=== PATIENT | female | born 1980 | race Two or more races ===

== ENCOUNTER 2020-05-09 18:09 | Inpatient (IN) | payer MEDICAID ==
[~2020-05-09] VITALS: Ht 154.9 cm; Wt 73.5 kg
[2020-05-10] MEDS ORDERED: LORazepam 2 MG TABLET PO PRN (00:30)
[2020-05-10 01:27] VITALS: BP 120/87
[2020-05-10] MEDS ORDERED: MAG HYDROX/AL HYDROX/SIMETH ES 30 ML SUSPENSION UDCUP PO PRN (08:00)
[2020-05-10] MEDS ORDERED: BENZOCAINE/MENTHOL LOZENGE PO PRN (08:00)
[2020-05-10] MEDS ORDERED: ALBUTEROL SULFATE HFA 90 MCG/PUFF 8 GM INHALER IH PRN (08:00)
[2020-05-10] MEDS ORDERED: OMEPRAZOLE 20 MG CAPSULE PO PRN (08:00)
[2020-05-10] MEDS ORDERED: PETROLATUM,WHITE 28 GM JELLY TP PRN (08:00)
[2020-05-10] MEDS ORDERED: ACETAMINOPHEN 325 MG TABLET PO PRN (08:00)
[2020-05-10] MEDS ORDERED: LOPERAMIDE HCL 2 MG CAPSULE PO PRN (08:00)
[2020-05-10] MEDS ORDERED: BACITRACIN 28 GM OINTMENT TP PRN (08:00)
[2020-05-10] MEDS ORDERED: IBUPROFEN 600 MG TABLET PO PRN (08:00)
[2020-05-10] MEDS ORDERED: DOCUSATE SODIUM 100 MG CAPSULE PO PRN (08:00)
[2020-05-10] MEDS ORDERED: ONDANSETRON HCL 4 MG TABLET PO PRN (08:00)
[2020-05-10] MEDS ORDERED: MAGNESIUM HYDROXIDE SUSPENSION 30 ML UDCUP PO PRN (08:00)
[2020-05-10] MEDS ORDERED: CloNIDine HCL 0.1 MG TABLET PO PRN (08:00)
[2020-05-10] MEDS: TOPIRAMATE 100 MG TABLET PO SCH ×2 (08:35→17:17)
[2020-05-10] MEDS ORDERED: ESCITALOPRAM OXALATE 20 MG TABLET PO SCH (09:00)
[2020-05-10 09:30] VITALS: BP 123/75
[2020-05-10] MEDS ORDERED: LURASIDONE HCL 80 MG TABLET PO SCH (12:00)
[2020-05-10] MEDS ORDERED: MIRTAZAPINE 15 MG TABLET PO SCH (21:00)
[2020-05-11] VITALS: BP 136/66
[2020-05-11 08:08] LABS: BASOPHILS % (AUTO) 0.7 % (0.0-2.0); EOSINOPHILS % (AUTO) 2.9 % (1.0-6.0); HEMATOCRIT 36.4 % (36-46); HEMOGLOBIN 12.1 g/dL (12.0-16.0); LYMPHOCYTES # (AUTO) 1.5 K/uL (1.0-4.8); LYMPHOCYTES % (AUTO) 30.1 % (22.0-44.0); MEAN CORPUSCULAR HEMOGLOBIN 28.5 pg (26.0-34.0); MEAN CORPUSCULAR HGB CONC 33.3 G/dL (31.0-37.0); MEAN CORPUSCULAR VOLUME 86 fL (80-100); MONOCYTES # (AUTO) 0.3 K/uL (0.1-1.0); MONOCYTES % (AUTO) 6.8 % (2.0-9.0); NEUTROPHILS % (AUTO) 59.5 % (40.0-70.0); PLATELET COUNT (AUTO) 301 K/uL (150-450); RED BLOOD CELL COUNT(AUTO) 4.26 MIL/uL (4.00-5.20); RED CELL DISTRIBUTION WIDTH 15.2 % (11.5-14.5)
[2020-05-11 08:14] LABS: ALANINE AMINOTRANSFERASE 20 U/L (12-78); ALBUMIN 3.8 g/dL (3.4-5.0); ALKALINE PHOSPHATASE 51 U/L (46-116); ANION GAP 11 mmol/L (8-16); ASPARTATE AMINOTRANSFERASE 11 U/L (15-37); BILIRUBIN,TOTAL 0.3 mg/dL (0.1-1.0); CALCIUM, TOTAL 9.5 mg/dL (8.8-10.5); CARBON DIOXIDE 23 mmol/L (22-29); CHLORIDE 104 mmol/L (98-107); CHOL/HDL RATIO 2.7 (3.9-5.7); CHOLESTEROL 150 mg/dL (131-200); CREATININE 0.84 mg/dL (0.60-1.30); FREE T4 (FREE THYROXINE) 1.04 ng/dL (0.76-1.46); GLOMERULAR FILTR. RATE CALC > 60 mL/min (>60); GLUCOSE,RANDOM 88 mg/dL (70-110); HDL CHOLESTEROL 56 mg/dL (40-60); LDL CHOL (CALC.) 80 mg/dL (0-130); POTASSIUM 3.4 mmol/L (3.5-5.1); SODIUM SERUM 138 mmol/L (136-145); THYROID STIMULATING HORMONE 0.21 uIU/mL (0.36-3.74); TOTAL PROTEIN, SERUM 7.3 g/dL (6.4-8.2); TRIGLYCERIDES 69 mg/dL (15-150); UREA NITROGEN, BLOOD 8 mg/dL (7-18)
[2020-05-11 08:51] VITALS: BP 114/75
[2020-05-11] MEDS ORDERED: LURASIDONE HCL 80 MG TABLET PO SCH (09:00)
[2020-05-11] MEDS: TOPIRAMATE 100 MG TABLET PO SCH ×2 (09:07→16:22)
[2020-05-11] MEDS: ESCITALOPRAM OXALATE 10 MG TABLET PO SCH (09:09)
[2020-05-11 16:44] VITALS: BP 119/78
[2020-05-11] MEDS: LURASIDONE HCL 80 MG TABLET PO SCH (20:13)
[2020-05-12] VITALS: BP 122/81
[2020-05-12 08:06] LABS: ANION GAP 10 mmol/L (8-16); CALCIUM, TOTAL 9.4 mg/dL (8.8-10.5); CARBON DIOXIDE 24 mmol/L (22-29); CHLORIDE 106 mmol/L (98-107); CREATININE 0.76 mg/dL (0.60-1.30); GLOMERULAR FILTR. RATE CALC > 60 mL/min (>60); GLUCOSE,RANDOM 91 mg/dL (70-110); POTASSIUM 3.6 mmol/L (3.5-5.1); SODIUM SERUM 140 mmol/L (136-145); UREA NITROGEN, BLOOD 12 mg/dL (7-18)
[2020-05-12 08:15] VITALS: BP 127/76
[2020-05-12] MEDS: TOPIRAMATE 100 MG TABLET PO SCH ×2 (08:28→16:32)
[2020-05-12] MEDS: ESCITALOPRAM OXALATE 10 MG TABLET PO SCH (08:28)
[2020-05-12 16:03] VITALS: BP 124/68
[2020-05-12] MEDS: LURASIDONE HCL 80 MG TABLET PO SCH ×2 (20:50→20:57)
[2020-05-13 00:14] VITALS: BP 128/83
[2020-05-13 08:11] VITALS: BP 105/62
[2020-05-13] MEDS: TOPIRAMATE 100 MG TABLET PO SCH ×2 (08:29→16:23)
[2020-05-13] MEDS: ESCITALOPRAM OXALATE 10 MG TABLET PO SCH (08:29)
[2020-05-13 16:05] VITALS: BP 112/69
[2020-05-13] MEDS: HALOPERIDOL 5 MG TABLET PO PRN (19:29)
[2020-05-13] MEDS: LURASIDONE HCL 80 MG TABLET PO SCH (20:13)
[2020-05-13] MEDS: ZOLPIDEM TARTRATE 10 MG TABLET PO PRN (20:31)
[2020-05-14 00:50] VITALS: BP 109/64
[2020-05-14] MEDS: ESCITALOPRAM OXALATE 10 MG TABLET PO SCH (08:33)
[2020-05-14] MEDS: TOPIRAMATE 100 MG TABLET PO SCH ×2 (08:33→16:17)
[2020-05-14 09:23] VITALS: BP 122/72
[2020-05-14] MEDS: LURASIDONE HCL 80 MG TABLET PO SCH (20:11)
[2020-05-14] MEDS: HALOPERIDOL 5 MG TABLET PO PRN (20:27)
[2020-05-14] MEDS: ZOLPIDEM TARTRATE 10 MG TABLET PO PRN (20:27)
[2020-05-15 01:39] VITALS: BP 121/71
[2020-05-15] MEDS: TOPIRAMATE 100 MG TABLET PO SCH ×2 (08:14→16:12)
[2020-05-15] MEDS: ESCITALOPRAM OXALATE 10 MG TABLET PO SCH (08:14)
[2020-05-15 09:07] LABS: BILIRUBIN,URINE NEGATIVE (NEGATIVE); GLUCOSE, URINE (UA) NEGATIVE (NEGATIVE); KETONES,URINE NEGATIVE (NEGATIVE); LEUKOCYTE ESTERASE ,URINE NEGATIVE (NEGATIVE); NITRATE,URINE NEGATIVE (NEGATIVE); OCCULT BLOOD,URINE LARGE (NEGATIVE); PH,URINE 6.5 (5.0-8.0); PROTEIN,URINE NEGATIVE (NEGATIVE); UROBILINOGEN,URINE 0.2 mg/dL (<=1.0)
[2020-05-15 09:09] LABS: APPEARANCE,URINE SLIGHTLY CLOUDY (CLEAR)
[2020-05-15 09:14] LABS: AMPHET/METH SCREEN,URINE NEGATIVE (NEGATIVE); BARBITURATE SCREEN, URINE NEGATIVE (NEGATIVE); BENZODIAZEPINES SCREEN,URINE NEGATIVE (NEGATIVE); CANNABINOID SCREEN,URINE NEGATIVE (NEGATIVE); COCAINE SCREEN,URINE NEGATIVE (NEGATIVE); METHADONE SCREEN, URINE NEGATIVE (NEGATIVE); OPIATE SCREEN,URINE NEGATIVE (NEGATIVE)
[2020-05-15 09:15] LABS: PHENCYCLIDINE SCREEN,URINE NEGATIVE (NEGATIVE)
[2020-05-15 09:28] LABS: BACTERIA,URINE Moderate /HPF (None Seen); CALCIUM OXALATE CRYSTALS,UR Few /LPF (None Seen); SQUAMOUS EPITHELIAL CELL,UR Many /LPF (None Seen); WBC,URINE 0-2 /HPF (0-5)
[2020-05-15] MEDS: HALOPERIDOL 5 MG TABLET PO PRN (16:12)
[2020-05-15] MEDS: LURASIDONE HCL 80 MG TABLET PO SCH (21:28)
[2020-05-16 00:45] VITALS: BP 116/69
[2020-05-16] MEDS: TOPIRAMATE 100 MG TABLET PO SCH ×2 (08:10→16:23)
[2020-05-16] MEDS: ESCITALOPRAM OXALATE 10 MG TABLET PO SCH (08:10)
[2020-05-16] MEDS: LURASIDONE HCL 80 MG TABLET PO SCH (20:09)
[2020-05-16] MEDS: ZOLPIDEM TARTRATE 10 MG TABLET PO PRN (20:10)
[2020-05-17] MEDS: TOPIRAMATE 100 MG TABLET PO SCH ×2 (09:00→16:35)
[2020-05-17] MEDS: ESCITALOPRAM OXALATE 10 MG TABLET PO SCH (09:00)
[2020-05-17 16:25] VITALS: BP 113/77
[2020-05-17] MEDS: LURASIDONE HCL 80 MG TABLET PO SCH (16:35)
[2020-05-17] MEDS: BusPIRone HCL 15 MG TABLET PO SCH (16:35)
[2020-05-17] MEDS ORDERED: MIRTAZAPINE 15 MG TABLET PO SCH (21:00)
[2020-05-18 06:32] VITALS: BP 128/75
[2020-05-18] MEDS: TOPIRAMATE 100 MG TABLET PO SCH ×2 (08:25→16:17)
[2020-05-18] MEDS: BusPIRone HCL 15 MG TABLET PO SCH ×2 (08:25→16:17)
[2020-05-18] MEDS ORDERED: MIRT-89 PO (13:36)
[2020-05-18] MEDS ORDERED: TOPI100T37 PO (13:36)
[2020-05-18] MEDS ORDERED: LURA80TA2 PO (13:36)
[2020-05-18] MEDS ORDERED: BUSP15 PO (13:36)
[2020-05-18 16:15] VITALS: BP 140/80
[2020-05-18] MEDS: LURASIDONE HCL 80 MG TABLET PO SCH (16:17)
== END 2020-05-18 16:20 | disposition home or self-care (01) | DRG 750 ==
LOC: B2S 05-10 01:07
PROVIDERS: ADMIT Psychiatry & Neurology Psychiatry; ATTEND Psychiatry & Neurology Psychiatry
DX: F25.1 Schizoaffective disorder, depressive type (principal); F32.9 Major depressive disorder, single episode, unspecified; F19.10 Other psychoactive substance abuse, uncomplicated; K59.00 Constipation, unspecified; G47.00 Insomnia, unspecified; F41.9 Anxiety disorder, unspecified; Z59.0 Homelessness; Z79.899 Other long term (current) drug therapy; Z72.0 Tobacco use
CPT/HCPCS: 80307; 83036; 84439; 84443; 86592; 87086

== ENCOUNTER 2023-01-27 17:47 | Emergency (ER) | payer MEDICAID, OTHER ==
[~2023-01-27 17:47] MED LIST: BUSP15 PO; LURA80TA2 PO; MIRT-89 PO; TOPI100T37 PO
== END 2023-01-27 19:02 | disposition left against medical advice (07) ==
LOC: EMS 17:50
DX: Z53.21 Procedure and treatment not carried out due to patient leaving prior to being seen by health care provider (principal)

== ENCOUNTER 2023-01-29 10:14 | Inpatient (IN) | payer MEDICAID, OTHER ==
[~2023-01-29] VITALS: Ht 162.6 cm; Wt 98.0 kg
[2023-01-29 10:44] LABS: COVID AG,FIA SOURCE NASOPHARYNGEAL
[2023-01-29] MEDS ORDERED: HALOPERIDOL LACTATE 5 MG/ML VIAL IM ONE (10:45)
[2023-01-29] MEDS ORDERED: LORazepam 2 MG/ML VIAL IM ONE (10:45)
[2023-01-29] MEDS ORDERED: DiphenhydrAMINE HCL 50 MG/ML VIAL IM ONE (10:45)
[2023-01-29 11:55] LABS: BASOPHILS % (AUTO) 0.7 % (0.0-2.0); EOSINOPHILS % (AUTO) 1.9 % (1.0-6.0); HEMATOCRIT 31.5 % (36-46); LYMPHOCYTES % (AUTO) 22.8 % (22.0-44.0); MEAN CORPUSCULAR HGB CONC 31.8 G/dL (31.0-37.0); MEAN CORPUSCULAR VOLUME 79 fL (80-100); MONOCYTES # (AUTO) 0.4 K/uL (0.1-1.0); MONOCYTES % (AUTO) 9.3 % (2.0-9.0); NEUTROPHILS # (AUTO) 2.9 K/uL (1.8-7.7); NEUTROPHILS % (AUTO) 65.3 % (40.0-70.0); PLATELET COUNT (AUTO) 348 K/uL (150-450); RED BLOOD CELL COUNT(AUTO) 4.01 MIL/uL (4.00-5.20); RED CELL DISTRIBUTION WIDTH 17.4 % (11.5-14.5)
[2023-01-29] MEDS ORDERED: HALOPERIDOL 5 MG TABLET PO PRN (12:00)
[2023-01-29] MEDS ORDERED: TRAZ-257 PO (12:05)
[2023-01-29] MEDS ORDERED: LUMA42CA PO (12:05)
[2023-01-29] MEDS ORDERED: ESCI10 PO (12:05)
[2023-01-29] MEDS ORDERED: HYDR-4808 PO (12:05)
[2023-01-29] MEDS ORDERED: NICO-800 TD (12:05)
[2023-01-29 12:16] LABS: ANION GAP 6 mmol/L (8-16); CALCIUM, TOTAL 8.8 mg/dL (8.8-10.5); CARBON DIOXIDE 25 mmol/L (22-29); CHLORIDE 107 mmol/L (98-107); CREATININE 0.67 mg/dL (0.60-1.30); GLOMERULAR FILTR. RATE CALC > 60 mL/min (>60); GLUCOSE,RANDOM 90 mg/dL (70-110); POTASSIUM 3.6 mmol/L (3.5-5.1); SODIUM SERUM 138 mmol/L (136-145)
[2023-01-29 12:22] LABS: ALANINE AMINOTRANSFERASE 24 U/L (12-78); ALBUMIN 3.7 g/dL (3.4-5.0); ALKALINE PHOSPHATASE 56 U/L (46-116); ASPARTATE AMINOTRANSFERASE 32 U/L (15-37); BILIRUBIN,TOTAL 0.4 mg/dL (0.1-1.0); TOTAL PROTEIN, SERUM 7.4 g/dL (6.4-8.2)
[2023-01-29] MEDS: LORazepam 2 MG TABLET PO PRN (22:56)
[2023-01-31 08:20] VITALS: BP 113/69
[2023-01-31 09:00] VITALS: BP 113/69
[2023-01-31] MEDS ORDERED: ONDANSETRON HCL 4 MG TABLET PO PRN (09:00)
[2023-01-31] MEDS ORDERED: ACETAMINOPHEN 325 MG TABLET PO PRN (09:00)
[2023-01-31] MEDS ORDERED: IBUPROFEN 600 MG TABLET PO PRN (09:00)
[2023-01-31] MEDS ORDERED: MAGNESIUM HYDROXIDE SUSPENSION 30 ML UDCUP PO PRN (09:00)
[2023-01-31] MEDS ORDERED: DOCUSATE SODIUM 100 MG CAPSULE PO PRN (09:00)
[2023-01-31] MEDS ORDERED: PETROLATUM,WHITE 28 GM JELLY TP PRN (09:00)
[2023-01-31] MEDS ORDERED: CloNIDine HCL 0.1 MG TABLET PO PRN (09:00)
[2023-01-31] MEDS ORDERED: ALBUTEROL SULFATE HFA 90 MCG/PUFF 8 GM INHALER IH PRN (09:00)
[2023-01-31] MEDS ORDERED: LOPERAMIDE HCL 2 MG CAPSULE PO PRN (09:00)
[2023-01-31] MEDS ORDERED: OMEPRAZOLE 20 MG CAPSULE PO PRN (09:00)
[2023-01-31] MEDS ORDERED: BACITRACIN 28 GM OINTMENT TP PRN (09:00)
[2023-01-31] MEDS ORDERED: MAG HYDROX/AL HYDROX/SIMETH ES 30 ML SUSPENSION UDCUP PO PRN (09:00)
[2023-01-31] MEDS: LORazepam 2 MG TABLET PO PRN ×2 (09:16→22:06)
[2023-01-31 16:09] VITALS: BP 119/73
[2023-01-31] MEDS: NICOTINE 14 MG/24 HOUR PATCH TD PRN (18:58)
[2023-01-31 20:08] VITALS: BP 125/70
[2023-01-31] MEDS: ZOLPIDEM TARTRATE 10 MG TABLET PO PRN (22:05)
[2023-01-31 22:51] VITALS: BP 138/63
[2023-02-01 08:28] LABS: APPEARANCE,URINE HAZY (CLEAR); BILIRUBIN,URINE NEGATIVE (NEGATIVE); GLUCOSE, URINE (UA) NEGATIVE (NEGATIVE); KETONES,URINE NEGATIVE (NEGATIVE); LEUKOCYTE ESTERASE ,URINE NEGATIVE (NEGATIVE); NITRATE,URINE NEGATIVE (NEGATIVE); OCCULT BLOOD,URINE NEGATIVE (NEGATIVE); PROTEIN,URINE NEGATIVE (NEGATIVE); SPECIFIC GRAVITIY, URINE 1.022 (1.003-1.030); UROBILINOGEN,URINE <=1.0 mg/dL (<=1.0)
[2023-02-01 08:37] LABS: AMPHET/METH SCREEN,URINE NEGATIVE (NEGATIVE); BARBITURATE SCREEN, URINE NEGATIVE (NEGATIVE); BENZODIAZEPINES SCREEN,URINE NEGATIVE (NEGATIVE); CANNABINOID SCREEN,URINE POSITIVE (NEGATIVE); COCAINE SCREEN,URINE NEGATIVE (NEGATIVE); METHADONE SCREEN, URINE NEGATIVE (NEGATIVE); OPIATE SCREEN,URINE NEGATIVE (NEGATIVE); PHENCYCLIDINE SCREEN,URINE NEGATIVE (NEGATIVE)
[2023-02-01] MEDS: LORazepam 2 MG TABLET PO PRN ×2 (08:38→18:32)
[2023-02-01] MEDS: MULTIVITAMINS WITH MINERALS, THERAPEUTIC TABLET PO SCH (08:38)
[2023-02-01 10:00] VITALS: BP 102/66
[2023-02-01] MEDS: NICOTINE 14 MG/24 HOUR PATCH TD PRN (14:43)
[2023-02-01 16:20] VITALS: BP 134/86
[2023-02-01] MEDS: DIVALPROEX SODIUM 500 MG DR TABLET PO SCH (20:18)
[2023-02-01] MEDS: LITHIUM CARBONATE 300 MG CAPSULE PO SCH (20:18)
[2023-02-01] MEDS: RisperiDONE 0.5 MG TABLET PO SCH (20:18)
[2023-02-01] MEDS: ZOLPIDEM TARTRATE 10 MG TABLET PO PRN (21:01)
[2023-02-02 08:35] VITALS: BP 130/81
[2023-02-02] MEDS: RisperiDONE 0.5 MG TABLET PO SCH ×2 (08:42→20:43)
[2023-02-02] MEDS: MULTIVITAMINS WITH MINERALS, THERAPEUTIC TABLET PO SCH (08:42)
[2023-02-02] MEDS: DIVALPROEX SODIUM 500 MG DR TABLET PO SCH ×2 (08:42→20:43)
[2023-02-02] MEDS: LITHIUM CARBONATE 300 MG CAPSULE PO SCH ×2 (08:42→20:43)
[2023-02-02 09:01] VITALS: BP 132/85
[2023-02-02] MEDS: LORazepam 2 MG TABLET PO PRN (09:51)
[2023-02-02 20:23] VITALS: BP 111/72
[2023-02-03 07:59] LABS: LITHIUM 0.37 mmol/L (0.60-1.20)
[2023-02-03] MEDS: LITHIUM CARBONATE 300 MG CAPSULE PO SCH (08:25)
[2023-02-03] MEDS: DIVALPROEX SODIUM 500 MG DR TABLET PO SCH (08:25)
[2023-02-03] MEDS: MULTIVITAMINS WITH MINERALS, THERAPEUTIC TABLET PO SCH (08:25)
[2023-02-03] MEDS: RisperiDONE 0.5 MG TABLET PO SCH (08:28)
[2023-02-03 08:32] VITALS: BP 100/65
[2023-02-03] MEDS ORDERED: LITH300C3 PO (13:26)
[2023-02-03] MEDS ORDERED: DIVA-112 PO (13:26)
[2023-02-03] MEDS ORDERED: RISP0.5T39 PO (13:26)
== END 2023-02-03 16:08 | disposition home or self-care (01) | DRG 750 ==
LOC: EMS 10:16 → B3A 01-30 10:51
PROVIDERS: ADMIT Psychiatry & Neurology Psychiatry; ATTEND Psychiatry & Neurology Psychiatry
DX: F25.9 Schizoaffective disorder, unspecified (principal); R45.851 Suicidal ideations; F32.A Depression, unspecified; D50.9 Iron deficiency anemia, unspecified; F17.210 Nicotine dependence, cigarettes, uncomplicated; F41.9 Anxiety disorder, unspecified; G47.00 Insomnia, unspecified; K59.00 Constipation, unspecified; Z20.822 Contact with and (suspected) exposure to COVID-19; Z79.899 Other long term (current) drug therapy
CPT/HCPCS: 80053; 80164; 80178; 80307; 81003; 84703; 85025; 99285; G0480; J1200; J1630; J2060

== ENCOUNTER 2023-04-15 09:53 | Emergency (ER) | payer MEDICAID, OTHER ==
[~2023-04-15] VITALS: Ht 162.6 cm; Wt 94.1 kg
[~2023-04-15 09:53] MED LIST changes: -BUSP15 PO; +DIVA-112 PO; +LITH300C3 PO; -LURA80TA2 PO; -MIRT-89 PO; +RISP0.5T39 PO; -TOPI100T37 PO
[2023-04-15 09:59] VITALS: TEMP 98.5
[2023-04-15] MEDS ORDERED: LUMA42CA PO (09:59)
[2023-04-15] MEDS ORDERED: ESCI-8 PO (09:59)
[2023-04-15] MEDS ORDERED: RISP1TAB48 PO (09:59)
[2023-04-15] MEDS ORDERED: BUSP30TA2 PO (09:59)
[2023-04-15] MEDS ORDERED: HYDR-4808 PO (09:59)
[2023-04-15 13:16] VITALS: BP 116/74; PULSE 80; RESP 16
[2023-04-15] MEDS ORDERED: TRAZ-257 PO (13:18)
[2023-04-15] MEDS ORDERED: DOXY-354 PO (13:38)
[2023-04-15] MEDS ORDERED: DOXYCYCLINE HYCLATE 100 MG TABLET PO ONE (13:45)
== END 2023-04-15 13:57 | disposition home or self-care (01) ==
LOC: EMS 09:57
DX: S10.96XA Insect bite of unspecified part of neck, initial encounter (principal); L73.9 Follicular disorder, unspecified; F20.9 Schizophrenia, unspecified; F31.9 Bipolar disorder, unspecified; F12.90 Cannabis use, unspecified, uncomplicated; W57.XXXA Bitten or stung by nonvenomous insect and other nonvenomous arthropods, initial encounter; Y93.89 Activity, other specified; Y92.89 Other specified places as the place of occurrence of the external cause; Y99.8 Other external cause status
CPT/HCPCS: 99283

== ENCOUNTER 2025-08-18 14:29 | Inpatient (IN) | payer MEDICAID ==
[~2025-08-18] VITALS: Ht 162.6 cm; Wt 65.9 kg
[~2025-08-18 14:29] MED LIST changes: +BUSP30TA2 PO; +DOXY-354 PO; +ESCI-8 PO; +HYDR-4808 PO; +LUMA42CA4 PO; -RISP0.5T39 PO; +RISP1TAB48 PO; +TRAZ-257 PO
[2025-08-18 15:12] LABS: COVID AG,FIA SOURCE NASAL SWAB
[2025-08-18 15:14] LABS: PLATELET COUNT (AUTO) 427 K/uL (150-450); RED BLOOD CELL COUNT(AUTO) 4.39 MIL/uL (4.00-5.20); RED CELL DISTRIBUTION WIDTH 16.3 % (11.5-14.5); WHITE BLOOD COUNT (AUTO) 5.4 K/uL (4.5-11.0)
[2025-08-18 15:21] LABS: CALCIUM, TOTAL 9.9 mg/dL (8.8-10.5); CREATININE 0.68 mg/dL (0.60-1.30); GLOMERULAR FILTR. RATE CALC > 60 mL/min (>60); GLUCOSE,RANDOM 88 mg/dL (70-110); SODIUM SERUM 140 mmol/L (136-145); UREA NITROGEN, BLOOD 14 mg/dL (7-18)
[2025-08-18 15:28] LABS: ALCOHOL, BLOOD (SERUM) < 3 mg/dL (0-10)
[2025-08-18 15:30] LABS: SARS-COV2 (COVID) ANTIGEN,FIA Negative (Negative)
[2025-08-18 15:32] LABS: HCG,QUANTITATIVE 1 mIU/mL (0-6)
[2025-08-18 16:21] LABS: APPEARANCE,URINE CLEAR (CLEAR); GLUCOSE, URINE (UA) NEGATIVE (NEGATIVE); LEUKOCYTE ESTERASE ,URINE SMALL (NEGATIVE); NITRATE,URINE NEGATIVE (NEGATIVE); OCCULT BLOOD,URINE MODERATE (NEGATIVE); PH,URINE DRUG SCREEN 5.5 (5.0-8.0); SPECIFIC GRAVITIY, URINE 1.039 (1.003-1.030)
[2025-08-18 16:28] LABS: ALCOHOL, URINE DRUG SCREEN NEGATIVE (NEGATIVE); AMPHET/METH SCREEN,URINE NEGATIVE (NEGATIVE); BARBITURATE SCREEN, URINE NEGATIVE (NEGATIVE); CANNABINOID SCREEN,URINE POSITIVE (NEGATIVE); COCAINE SCREEN,URINE NEGATIVE (NEGATIVE); METHADONE SCREEN, URINE NEGATIVE (NEGATIVE)
[2025-08-18 16:34] LABS: YEAST,URINE Moderate /HPF (None Seen)
[2025-08-18 20:07] VITALS: BP 138/99; PULSE 85; RESP 17; TEMP 97.7; O2SAT 100
[2025-08-18] MEDS ORDERED: ACETAMINOPHEN 325 MG TABLET PO PRN (20:45)
[2025-08-18] MEDS ORDERED: GuaiFENesin/D-METHORPHAN [SUGAR-FREE] 200-20MG/10 ML SYRUP UDCUP PO PRN (20:45)
[2025-08-18] MEDS ORDERED: ONDANSETRON 4 MG TABLET PO PRN (20:45)
[2025-08-18] MEDS ORDERED: LOPERAMIDE HCL 2 MG CAPSULE PO PRN (20:45)
[2025-08-18] MEDS ORDERED: PETROLATUM,WHITE 28 GM JELLY TP PRN (20:45)
[2025-08-18] MEDS ORDERED: MAGNESIUM HYDROXIDE SUSPENSION 30 ML UDCUP PO PRN (20:45)
[2025-08-18] MEDS ORDERED: ALBUTEROL SULFATE HFA 90 MCG/PUFF 8 GM INHALER IH PRN (20:45)
[2025-08-18] MEDS ORDERED: IBUPROFEN 400 MG TABLET PO PRN (20:45)
[2025-08-18] MEDS ORDERED: DOCUSATE SODIUM 100 MG CAPSULE PO PRN (20:45)
[2025-08-18] MEDS: ZOLPIDEM TARTRATE 10 MG TABLET PO PRN (21:56)
[2025-08-18] MEDS: FLUCONAZOLE 150 MG TABLET PO ONE (22:29)
[2025-08-19 08:00] VITALS: BP 136/99; PULSE 100; RESP 18; TEMP 98.1; O2SAT 97
[2025-08-19 08:22] LABS: PLATELET COUNT (AUTO) 355 K/uL (150-450); RED BLOOD CELL COUNT(AUTO) 4.01 MIL/uL (4.00-5.20); RED CELL DISTRIBUTION WIDTH 16.3 % (11.5-14.5); WHITE BLOOD COUNT (AUTO) 3.9 K/uL (4.5-11.0)
[2025-08-19 08:56] LABS: ASPARTATE AMINOTRANSFERASE 20 U/L (15-37); CALCIUM, TOTAL 9.0 mg/dL (8.8-10.5); CHOL/HDL RATIO 2.0 (3.9-5.7); CREATININE 0.70 mg/dL (0.60-1.30); GLOMERULAR FILTR. RATE CALC > 60 mL/min (>60); GLUCOSE,RANDOM 80 mg/dL (70-110); LDL CHOL (CALC.) 82 mg/dL (0-130); SODIUM SERUM 140 mmol/L (136-145); TOTAL PROTEIN, SERUM 6.8 g/dL (6.4-8.2); UREA NITROGEN, BLOOD 11 mg/dL (7-18)
[2025-08-19] MEDS: DIVALPROEX SODIUM 500 MG DR TABLET PO SCH (09:29)
[2025-08-19 23:02] VITALS: BP 106/62; PULSE 74; RESP 18; TEMP 98; O2SAT 97
[2025-08-20 08:28] VITALS: BP 117/71; PULSE 78; RESP 18; TEMP 98.1; O2SAT 97
[2025-08-20] MEDS: POTASSIUM CHLORIDE 20 MEQ ER TABLET PO ONE (09:10)
[2025-08-20] MEDS: CEPHALEXIN MONOHYDRATE 500 MG CAPSULE PO SCH (09:10)
[2025-08-20 20:30] VITALS: BP 108/75; PULSE 83; RESP 16; TEMP 97.9; O2SAT 99
[2025-08-21 08:40] VITALS: BP 110/86; PULSE 115; RESP 17; TEMP 97.5; O2SAT 98
[2025-08-21 09:05] VITALS: PULSE 84; RESP 17; O2SAT 99
[2025-08-21] MEDS: NICOTINE 14 MG/24 HOUR PATCH TD PRN (13:32)
[2025-08-21 20:34] VITALS: BP 112/76; PULSE 98; RESP 17; TEMP 98; O2SAT 99
[2025-08-22 08:19] VITALS: BP 94/73; PULSE 112; RESP 17; TEMP 97.4; O2SAT 100
[2025-08-22 21:13] VITALS: BP 97/56; PULSE 78; RESP 17; TEMP 97.2; O2SAT 100
[2025-08-23 08:47] VITALS: BP 109/70; PULSE 89; RESP 17; TEMP 98.3; O2SAT 97
[2025-08-23 16:50] VITALS: RESP 16
[2025-08-23 17:50] VITALS: RESP 16
[2025-08-23 20:31] VITALS: BP 107/75; PULSE 85; RESP 17; TEMP 98.1; O2SAT 98
[2025-08-24 08:29] VITALS: BP 111/88; PULSE 100; RESP 18; TEMP 97.5; O2SAT 100
[2025-08-24 20:31] VITALS: BP 121/78; PULSE 68; RESP 17; TEMP 98.1; O2SAT 97
[2025-08-25 08:16] VITALS: BP 109/67; PULSE 81; RESP 17; TEMP 97.9; O2SAT 98
[2025-08-25 20:33] VITALS: BP 107/65; PULSE 75; RESP 15; TEMP 97.3; O2SAT 100
[2025-08-26 08:44] VITALS: BP 105/80; PULSE 85; RESP 17; TEMP 98; O2SAT 100
[2025-08-26 20:41] VITALS: BP 118/90; PULSE 100; RESP 17; TEMP 97.5; O2SAT 99
[2025-08-27 08:47] VITALS: BP 104/60; PULSE 96; RESP 17; TEMP 97.3; O2SAT 99
[2025-08-27] MEDS: MAG HYDROX/ALUMINUM HYD/SIMETH ES 30 ML SUSPENSION UDCUP PO PRN (17:57)
[2025-08-27 20:20] VITALS: BP 106/65; PULSE 87; RESP 17; TEMP 97.7; O2SAT 97
[2025-08-28 08:22] VITALS: BP 104/68; PULSE 98; RESP 18; TEMP 98.1; O2SAT 100
[2025-08-28 20:00] VITALS: BP 112/67; PULSE 85; RESP 17; TEMP 97.7; O2SAT 100
[2025-08-29 08:28] VITALS: BP 106/70; PULSE 101; RESP 17; TEMP 97; O2SAT 99
[2025-08-29 20:15] VITALS: BP 97/58; PULSE 92; RESP 18; TEMP 98; O2SAT 100
[2025-08-30 08:28] VITALS: BP 101/65; PULSE 100; RESP 16; TEMP 97.2; O2SAT 100
[2025-08-30] MEDS ORDERED: DIVA-153 PO (16:32)
[2025-08-30] MEDS ORDERED: RISP-32 PO (16:33)
[2025-08-30] MEDS ORDERED: DIVA-112 PO (18:48)
[2025-08-30] MEDS ORDERED: RISP-31 PO (18:48)
== END 2025-08-30 18:20 | disposition home or self-care (01) | DRG 761 ==
LOC: EMS 14:31 → B3A 17:19
PROVIDERS: ADMIT Psychiatry & Neurology Psychiatry; ATTEND Psychiatry & Neurology Psychiatry
PROC: GZHZZZZ Group Psychotherapy (ICD-10-PCS; principal; 2025-08-19)
PROC: GZ52ZZZ Individual Psychotherapy, Cognitive (ICD-10-PCS; 2025-08-20)
DX: F25.0 Schizoaffective disorder, bipolar type (principal); E87.6 Hypokalemia; N39.0 Urinary tract infection, site not specified; F12.10 Cannabis abuse, uncomplicated; Z79.899 Other long term (current) drug therapy; F43.10 Post-traumatic stress disorder, unspecified; F10.90 Alcohol use, unspecified, uncomplicated; Y90.0 Blood alcohol level of less than 20 mg/100 ml; F41.9 Anxiety disorder, unspecified; Z20.822 Contact with and (suspected) exposure to COVID-19
CPT/HCPCS: 80048; 80053; 80061; 80307; 81001; 83036; 84132; 84443; 84702; 85025; 99285; G0480